=== PATIENT | female | born 1940 | race Asian ===

== ENCOUNTER 2023-12-25 15:02 | Emergency (ER) | payer OTHER ==
[~2023-12-25] VITALS: Ht 165.1 cm; Wt 49.9 kg
[2023-12-25 15:09] VITALS: BP 130/84; PULSE 87; RESP 20; TEMP 97.3; O2SAT 96
[2023-12-25] MEDS: BACITRACIN OINT 500 UNITS/GM PKT TP ONE (16:38)
[2023-12-25] MEDS ORDERED: IBUP-1842 PO (16:39)
[2023-12-25 16:50] VITALS: BP 91/58; PULSE 89; RESP 18; TEMP 97.3; O2SAT 96
== END 2023-12-25 16:50 | disposition home or self-care (01) ==
LOC: MED 15:02
DX: S00.83XA Contusion of other part of head, initial encounter (principal); S80.212A Abrasion, left knee, initial encounter; S80.211A Abrasion, right knee, initial encounter; S00.31XA Abrasion of nose, initial encounter; F03.90 Unspecified dementia, unspecified severity, without behavioral disturbance, psychotic disturbance, mood disturbance, and anxiety; Z88.0 Allergy status to penicillin; Z88.2 Allergy status to sulfonamides; W18.39XA Other fall on same level, initial encounter; Y92.89 Other specified places as the place of occurrence of the external cause; Y93.89 Activity, other specified; Y99.8 Other external cause status
CPT/HCPCS: 70450; 70486; 73562; 99284